=== PATIENT | female | born 1985 | race Hispanic/Latino ===

== ENCOUNTER 2023-10-05 18:53 | Emergency (ER) | payer OTHER ==
[2023-10-05] MEDS ORDERED: Ipratropium/Albuterol 3 ML NEB ONE (19:04)
[2023-10-05] MEDS ORDERED: predniSONE 20 MG TAB ONE (19:04)
[2023-10-05] MEDS ORDERED: Boostrix 0.5 ML (Tdap) VIAL (>/=7 yrs of age) ONE (20:09)
[2023-10-05] MEDS ORDERED: Bacitracin 1 PK ONE (20:09)
[2023-10-05] MEDS ORDERED: Sulfameth/Trimethoprim DS 800-160mg TAB ONE (20:13)
[2023-10-05] MEDS ORDERED: Amoxicillin/Potassium Clav 875 MG TAB ONE (20:14)
== END 2023-10-05 20:36 | disposition home or self-care (01) ==
LOC: NAV ERS 18:53
DX: S61.254A Open bite of right ring finger without damage to nail, initial encounter (principal); Z23 Encounter for immunization; W54.0XXA Bitten by dog, initial encounter
CPT/HCPCS: 90471; 90715; J7512; J7620